=== PATIENT | female | born 1960 | race Asian ===

== ENCOUNTER → 2020-07-20 | Day surgery (SDC) | payer BC ==
[~2020-07-20] VITALS: Ht 165.1 cm; Wt 79.4 kg
[2020-07-20 17:09] VITALS: Ht 165.1 cm; Wt 79.4 kg
[2020-07-21 00:15] VITALS: BP 117/76
== END | disposition home or self-care (01) ==
LOC: ED 16:50 → DS 20:35 → OR 20:35 → EDBEDREQSVC 20:41
PROVIDERS: ATTEND Internal Medicine Gastroenterology
DX: T18.128A Food in esophagus causing other injury, initial encounter (principal); Z85.038 Personal history of other malignant neoplasm of large intestine; X58.XXXA Exposure to other specified factors, initial encounter; Y93.89 Activity, other specified; Y92.89 Other specified places as the place of occurrence of the external cause; Y99.8 Other external cause status
CPT/HCPCS: J2250; J3010; J7030